=== PATIENT | male | born 1930 | race Caucasian/White ===

== ENCOUNTER 2016-12-18 10:52 | Emergency (ER) | payer OTHER ==
[~2016-12-18] VITALS: Ht 172.7 cm; Wt 74.8 kg
--- NOTE | ~2016-12-18 | EKG ---
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 : 1930 Requested By: Sanjuana Moise Order Number: [id number] MD: Herbert Gomez Measurements Intervals [place] Rate: 69 P: 75 IN: 169 QRS: 43 QRSD: 83 T: QT: 382 QTc: 410 Interpretive Statements Sinus rhythm Nonspecific T abnrm, anterolateral leads Compared to ECG 11/06/2016 19:41:27 No significant changes Electronically Signed On 12-20-2016 14:50:02 CDT by Herbert Gomez [email or web address] <ELECTRONICALLY SIGNED> By: Herbert Gomez MD, [facility] 12/20/16 1450 1135 1135 Herbert Gomez MD, FACC /EPI
[~2016-12-18 10:52] MED LIST: ACCUNEB SO1.25 MG/1 INH; ACETAMINOPHEN325 M1 PO; ALBUTEROL2.5 MG/31 INH; AMBIEN 5 MG TABL5 M1 PO; ASPIR 8181 MG PO; ASPIRIN EC81 M1 PO; AVODART0.5 MG PO; BREO ELLIPTA 21 EACH IH; CADUET 5 MG-401 EACH PO; CLOPIDOGREL75 MG PO; FISH OIL 1,0001 EAC5 PO; FLONASE 0.05%50 MCG NASAL; HYDROCHLOROTHIA25 M1 PO; LEVAQUIN 500 M500 M2 PO; METOPROLOL SUCC25 M1 PO; MIRALAX255 GM PO; PRILOSEC 20 MG20 MG PO; PROAIR HFA8.5 GM INH; PROSCAR 5MG TABL5 MG PO; SPIRIVA INH; SPIRIVA18 MCG INH; TOPROL XL25 MG PO; VENTOLIN HFA 1818 GM INH
[2016-12-18 11:39] LABS: BASOPHILS 0.6 % (0.0-2.0); EOSINOPHILS 2.1 % (0.0-3.0); HEMATOCRIT 39.2 % (42.0-52.0); HEMOGLOBIN 13.6 gm/dL (14.0-18.0); LYMPHOCYTES 11.7 % (24.0-44.0); MCH 32.2 pg (26.0-34.0); MCHC 34.8 g/dL (28.0-37.0); MCV 92.6 fL (80.0-100.0); MONOCYTES 7.6 % (1.0-8.0); PLATELET COUNT 193 thou/uL (150-400); RBC 4.24 mil/uL (4.50-6.00); RDW 12.7 % (10.5-14.5); WBC 11.5 thou/uL (4.0-11.0)
[2016-12-18 11:41] LABS: MANUAL DIFF NO
[2016-12-18 11:50] LABS: PROTIME 10.8 Seconds (9.3-11.4)
[2016-12-18 11:51] LABS: ANION GAP 9 mmol/L (7-16); BUN 20 mg/dL (7-18); CALCIUM 8.6 mg/dL (8.5-10.1); CHLORIDE 103 mmol/L (98-107); CO2 27 mmol/L (21-32); CREATININE 1.1 mg/dL (0.7-1.3); GLUCOSE 92 mg/dL (74-106); POTASSIUM 3.7 mmol/L (3.5-5.1); SODIUM 139 mmol/L (136-145)
[2016-12-18 12:02] LABS: ALBUMIN 3.6 g/dL (3.4-5.0); ALKALINE PHOSPHATASE 117 U/L (46-116); NT-PRO BRAIN NAT PEPTIDE 336 pg/mL (<300); SGOT 14 U/L (15-37); SGPT 20 U/L (30-65); TOTAL PROTEIN 6.8 g/dL (6.4-8.2); TROPONIN-I < 0.04 ng/mL (<0.04-0.07)
[2016-12-18] MEDS ORDERED: PREDNISONE 20 M20 MG PO (12:57)
[2016-12-18] MEDS ORDERED: TESSALON PERLE100 MG PO (12:57)
== END 2016-12-18 13:39 | disposition home or self-care (01) ==
LOC: ER 10:52
PROVIDERS: Nurse Practitioner Family
DX: J44.9 Chronic obstructive pulmonary disease, unspecified (principal); I10 Essential (primary) hypertension; K21.9 Gastro-esophageal reflux disease without esophagitis; Z95.5 Presence of coronary angioplasty implant and graft; F17.210 Nicotine dependence, cigarettes, uncomplicated

== ENCOUNTER → 2018-12-02 | Outpatient (CLI) | payer OTHER ==
[~2018-12-02] VITALS: Ht 172.7 cm; Wt 72.6 kg
[~2018-12-02] MED LIST changes: +PREDNISONE 20 M20 MG PO; +TESSALON PERLE100 MG PO
[2018-12-02 09:04] VITALS: BP 169/71
== END | disposition home or self-care (01) ==
LOC: SPEC 08:13
DX: I70.213 Atherosclerosis of native arteries of extremities with intermittent claudication, bilateral legs (principal); I70.1 Atherosclerosis of renal artery; I10 Essential (primary) hypertension; J44.9 Chronic obstructive pulmonary disease, unspecified; K21.9 Gastro-esophageal reflux disease without esophagitis; E78.5 Hyperlipidemia, unspecified; I25.2 Old myocardial infarction; F17.210 Nicotine dependence, cigarettes, uncomplicated; Z98.890 Other specified postprocedural states; Z82.49 Family history of ischemic heart disease and other diseases of the circulatory system; Z79.899 Other long term (current) drug therapy; Z95.5 Presence of coronary angioplasty implant and graft

== ENCOUNTER → 2019-04-18 | Outpatient (CLI) | payer OTHER ==
[~2019-04-18] VITALS: Ht 172.7 cm; Wt 72.6 kg
[~2019-04-18] MED LIST changes: +AMLODIPINE-ATO1 EAC2 PO; +ANORO ELLIPTA1 EACH INH; +IPRAT-ALBUT 0.5-3 ML INH
--- NOTE | ~2019-04-18 | HPC ---
[facility] [place] [address] PAIN MANAGEMENT CONSULTATION Name: FAUSTINA FRANCOIS Room #: REG [facility].#: [id number] Admission: 04/18/19 Attend Phys: Austin Mariscal MD Discharge: Date of : 30 Report #: [id number] THIS REPORT FOR: //name// CC: Usman Mcdermott MD FAM physician/PCP Physician staff Austin Mariscal DATE OF SERVICE: 04/18/2019 CHIEF COMPLAINT: Low back pain radiating down the posterolateral aspect of both legs. HISTORY OF PRESENT ILLNESS: The patient is a pleasant 88-year-old who is here today at the request of Dr. Mcdermott for evaluation of lumbar radiculopathy. He has long history of smoking. At 88 years of age, he looks great. He moves easily. He is a little bit forgetful, but this is only mild. We had a nice conversation throughout his visit. He has a history of coronary artery disease and has undergone stenting procedures. Dr. Mcdermott has evaluated him for vascular claudication. His symptoms are more severe when he is standing and walking. They are eased somewhat when he sits. As a result of his workup and from his diagnostics, it is felt that he is experiencing neurogenic claudication. I do not have an MRI or x-rays of the lumbar spine. Pain follows an L5-S1 distribution. He has had previous surgery, the first in 1974, the second in 1984. Both were performed through a small incision in the back and I suspect laminectomies. There is no hardware. He takes no pain medication at this time. He has some aspirin that he takes in Excedrin. I have cautioned him about the combination of these in addition to his Plavix. He has a history of GI distress at times and gastroesophageal reflux. The combination is dangerous should he develop any symptoms of GI bleed. Tylenol can be used alternatively. He has had no physical therapy. MEDICATIONS: Finasteride 5 mg, aspirin 81 mg, amiodarone 5/40, Plavix 75 mg, metoprolol 25 mg inhaler and nebulizer. ALLERGIES: None listed. PAST MEDICAL HISTORY: Significant for COPD. He uses nocturnal oxygen. He has a history of hypertension and coronary artery disease. He has had stent. PROCEDURES PERFORMED: I believe by Dr. Bobby. He is treated for hypertension. His only other procedures and surgeries include the two back operations [address] [address] PAIN MANAGEMENT CONSULTATION Name: PRISCILAFAUSTINA BAINS Room #: REG [facility] Kenji#: [id number] Admission: 04/18/19 Attend Phys: Austin Mariscal MD Discharge: Date of : 30 Report #: [id number] described above. SOCIAL HISTORY: He is . His also smokes and has COPD. He smokes 1/2 pack a day now and has smoked for over 60 years. He does not drink alcohol. 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 REVIEW OF SYSTEMS: Completed by the patient is positive for heart trouble, constipation, nocturia, mild incontinence. Otherwise, negative. PHYSICAL EXAMINATION: GENERAL: Pleasant gentleman, conversant. Provides history with some small gaps. VITAL SIGNS: Blood pressure 134/66, heart rate 61, respirations 14, O2 sat 98 on room air. BMI is 24.3. He independently moves from sitting to standing position without difficulty. His gait is mildly antalgic. CHEST: Reveals inspiratory and expiratory wheezing. There is a long expiratory phase. CARDIAC: Rhythm is regular. There is no audible murmur. ABDOMEN: Soft, no organomegaly. MUSCULOSKELETAL: Good range of motion of the upper extremities. Examination of the spine reveals a small scar at L4-L5 and L5-S1 with localized tenderness, which is mild. Straight leg raising is mildly positive bilaterally. Deep tendon reflexes are 1+ bilaterally at the knees. Sensation is intact. There is no focal weakness. IMPRESSION: Lumbar radiculopathy, L5-S1 distribution. I think it is reasonable to treat him without an MRI at this time, although it would be interesting to see how much stenosis he has. I suspect there is some spinal stenosis and certainly some neuroforaminal stenosis that is the source of some of his pain. I discussed procedure with him and will take him off his Plavix for [address] Bobby's blessing and have him back in the clinic for an epidural injection in 1 week. By: [id number] Austin Mariscal MD /nt
[2019-04-18 08:21] VITALS: BP 134/66
--- NOTE | 2019-04-18 08:37 | NUR ---
Pain Clinic Assessment: 1. History of Osteoarthritis: History of Rheumatoid Arthritis: 2. Height: 5 ft. 8 in. 172.7 cm. Weight: 160.0 lb. oz. 72.576 kg. Patient's BMI: 24.3 3. Vital Signs: BP: 134/66 Pulse: 61 Resp: 14 Temp: 02 Sat: 98 ECG Mon: 4. Pain Intensity: 3 5. Fall Risk: Dizziness: Y Needs help standing or walking: N Fallen in the last 3 months: Y Fall risk comments: 6. Patient on Blood Thinner: Clopidogrel Bisulf(Plavix 7. History of Hypertension: Y 8. Opioid Therapy greater than 6 weeks: N Opiate Contract Signed: 9. Risk Assessment Tool Provided: LOW 10. Functional Assessment Tool: 11. Recreational Drug Use: Never Drug Type: Tobacco Use: Current Every Day Smoker Tobacco Type: Cigarettes Amount or Packs/day: 1/2 PACK How Many Years: 60 Alcohol Use: No Frequency: Quant:
== END ==
LOC: PAIN 06:45
DX: M54.16 Radiculopathy, lumbar region (principal); M54.17 Radiculopathy, lumbosacral region; J44.9 Chronic obstructive pulmonary disease, unspecified

== ENCOUNTER → 2019-04-27 | Outpatient (CLI) | payer OTHER ==
[~2019-04-27] VITALS: Ht 170.2 cm; Wt 73.5 kg
[~2019-04-27] MED LIST changes: +NORCO 5-325 TA1 EAC1 PO
--- NOTE | ~2019-04-27 | HPC ---
[address] [address] PAIN MANAGEMENT CONSULTATION Name: FAUST[facility]COIS [id number] Admission: 04/27/19 Attend Phys: Austin Mariscal MD Discharge: Date of : 30 Report #: [id number] THIS REPORT FOR: //name// CC: CARLOS WATTS MD [facility] physician/PCP Physician staff Austin Mariscal DATE OF SERVICE: 04/27/2019 Followup visit for low back pain with bilateral L5-S1 radiculopathy. The patient is here today complaining of pain in his low back with radiation primarily to the left, bilaterally into the L5-S1 distribution. We are hopeful that an epidural steroid injection will provide relief. He was on Plavix when we saw him on 04/18/2019 just 9 days ago. After evaluation, we scheduled him for an epidural today at 7 days off his medication. He has been off although he did not discuss with Dr. Bobby. We will go ahead and provide the injection today and reinitiate his Plavix this evening. Record from 04/18/2019 was reviewed. There have been no significant changes. I reviewed the procedure with him including potential risks and benefits. Questions were asked and answered. IMPRESSION: Lumbar radiculopathy, bilateral L5-S1 distribution. PROCEDURE: Epidural steroid injection L4-L5 under fluoroscopic guidance. He was taken to fluoroscopic suite, placed prone, skin prepped with ChloraPrep. Skin anesthetized over the L4-L5 interspace. Because of previous laminectomy, I entered the epidural space from the right. A 20-gauge Tuohy epidural needle was advanced into the midline using loss of resistance. There was no blood nor CSF aspirated. A 1 mL of Omnipaque was injected and excellent spread of dye observed into the epidural space. I then injected a total of 0.3 mL of 0.5% lidocaine mixed with 10 mg of dexamethasone. Needle was removed. There were no complications. He was taken to recovery room and observed for 45 minutes before discharge. Followup visit planned in 1-2 months. By: [id number] Austin Mariscal MD /nt
[2019-04-27 10:07] VITALS: BP 134/70
--- NOTE | 2019-04-27 10:14 | NUR ---
Pain Clinic Assessment: 1. History of Osteoarthritis: Not Applicable History of Rheumatoid Arthritis: Not Applicable 2. Height: 5 ft. 7 in. 170.2 cm. Weight: 162.0 lb. oz. 73.483 kg. Patient's BMI: 25.4 3. Vital Signs: BP: 134/70 Pulse: 63 Resp: 16 Temp: 02 Sat: 99 ECG Mon: 4. Pain Intensity: 3 5. Fall Risk: Dizziness: Y Needs help standing or walking: N Fallen in the last 3 months: N Fall risk comments: 6. Patient on Blood Thinner: Clopidogrel Bisulf(Plavix 7. History of Hypertension: Y 8. Opioid Therapy greater than 6 weeks: N Opiate Contract Signed: 9. Risk Assessment Tool Provided: LOW 10. Functional Assessment Tool: 11. Recreational Drug Use: Never Drug Type: Tobacco Use: Current Every Day Smoker Tobacco Type: Cigarettes Amount or Packs/day: 1/2 pack pd How Many Years: 73 Alcohol Use: No Frequency: Quant:
== END | disposition home or self-care (01) ==
LOC: PAIN 08:23
DX: M54.16 Radiculopathy, lumbar region (principal); G89.29 Other chronic pain; J44.9 Chronic obstructive pulmonary disease, unspecified; F17.210 Nicotine dependence, cigarettes, uncomplicated; Z79.899 Other long term (current) drug therapy; Z98.890 Other specified postprocedural states

== ENCOUNTER 2019-05-02 12:13 | Emergency (ER) | payer OTHER ==
[~2019-05-02] VITALS: Ht 172.7 cm; Wt 72.6 kg
[~2019-05-02 12:13] MED LIST changes: -NORCO 5-325 TA1 EAC1 PO
[2019-05-02] MEDS ORDERED: NORCO 5-325 TA1 EAC1 PO (14:27)
[2019-05-02 14:48] VITALS: BP 138/82
== END 2019-05-02 14:49 | disposition home or self-care (01) ==
LOC: ER 12:13
DX: M54.41 Lumbago with sciatica, right side (principal); F17.210 Nicotine dependence, cigarettes, uncomplicated; Z98.890 Other specified postprocedural states

== ENCOUNTER → 2019-05-22 | Outpatient (CLI) | payer OTHER ==
[~2019-05-22] VITALS: Ht 170.2 cm; Wt 73.8 kg
[~2019-05-22] MED LIST changes: +NORCO 5-325 TA1 EAC1 PO
[2019-05-22 09:25] VITALS: BP 149/73
--- NOTE | 2019-05-22 09:53 | NUR ---
Pain Clinic Assessment: 1. History of Osteoarthritis: Not Applicable History of Rheumatoid Arthritis: Not Applicable 2. Height: 5 ft. 7 in. 170.2 cm. Weight: 162.6 lb. oz. 73.755 kg. Patient's BMI: 25.5 3. Vital Signs: BP: 149/73 Pulse: 63 Resp: 18 Temp: 02 Sat: 100 ECG Mon: 4. Pain Intensity: 0 5. Fall Risk: Dizziness: N Needs help standing or walking: N Fallen in the last 3 months: N Fall risk comments: 6. Patient on Blood Thinner: Clopidogrel Bisulf(Plavix 7. History of Hypertension: Y 8. Opioid Therapy greater than 6 weeks: N Opiate Contract Signed: 9. Risk Assessment Tool Provided: LOW 10. Functional Assessment Tool: 11. Recreational Drug Use: Never Drug Type: Tobacco Use: Current Every Day Smoker Tobacco Type: Amount or Packs/day: How Many Years: Alcohol Use: No Frequency: Quant:
--- NOTE | 2019-06-08 16:52 | HPC ---
[facility] [place] [address] PAIN MANAGEMENT CONSULTATION Name: FAUSTINA FRANCOIS Room #: REG [facility].#: [id number] Admission: 05/22/19 Attend Phys: Austin Mariscal MD Discharge: Date of : 30 Report #: [id number] THIS REPORT FOR: //name// CC: Usman Mcdermott MD FAM unknown Austin Mariscal DATE OF SERVICE: 05/22/2019 The patient returns to pain clinic today. He had initially scheduled for repeat epidural injection and he was last treated on 04/27/2019. Although he had pain last week, the pain over the course of the weekend has gradually dissipated and his pain score is 0. PHYSICAL EXAMINATION: VITAL SIGNS: He is 5 feet 7 inches, BMI 25.5. His blood pressure 149/73, heart rate 63, respirations 18. MUSCULOSKELETAL: He moves gently and independently from a sitting to standing position and walks without difficulty. He has negative straight leg raising. Deep tendon reflexes are diminished bilaterally at the knees and ankles. IMPRESSION: Lumbar radiculopathy, which is completely resolved. He does not need another epidural injection. I have recommended that he return to our clinic only as needed. No injection is performed today. <ELECTRONICALLY SIGNED> By: Austin Mariscal MD 06/08/19 1652 [id number] [id number] Austin Mariscal MD /nt
== END ==
LOC: PAIN 06:49
DX: M54.16 Radiculopathy, lumbar region (principal)

== ENCOUNTER → 2019-10-17 | Outpatient (CLI) | payer OTHER | LOC: SJCVCIMAG 08:51 | DX: I73.9 Peripheral vascular disease, unspecified (principal); I25.10 Atherosclerotic heart disease of native coronary artery without angina pectoris; I10 Essential (primary) hypertension; E78.00 Pure hypercholesterolemia, unspecified; J44.9 Chronic obstructive pulmonary disease, unspecified; F17.210 Nicotine dependence, cigarettes, uncomplicated; Z79.899 Other long term (current) drug therapy; Z95.820 Peripheral vascular angioplasty status with implants and grafts; Z98.890 Other specified postprocedural states ==

== ENCOUNTER → 2020-02-19 | Outpatient (CLI) | payer OTHER | LOC: SJCVC 14:26 | PROVIDERS: ATTEND Internal Medicine Cardiovascular Disease | DX: R94.31 Abnormal electrocardiogram [ECG] [EKG] (principal); I25.10 Atherosclerotic heart disease of native coronary artery without angina pectoris; I73.9 Peripheral vascular disease, unspecified; I10 Essential (primary) hypertension; E78.00 Pure hypercholesterolemia, unspecified ==

== ENCOUNTER → 2020-02-22 | Outpatient (CLI) | payer OTHER ==
[~2020-02-22] VITALS: Ht 165.1 cm; Wt 68.7 kg
--- NOTE | ~2020-02-22 | HPC ---
[facility] [place] [address] PAIN MANAGEMENT CONSULTATION Name: FAUSTINA FRANCOIS [id number] Admission: 02/22/20 Attend Phys: Austin Mariscal MD Discharge: Date of : 30 Report #: [id number] THIS REPORT FOR: cc: JEROMY - No family physician/PCP JEROMY - No family physician/PCP Austin Mariscal MD ~ CC: Usman Mcdermott MD FAM physician/PCP Physician staff Austin Mariscal DATE OF SERVICE: 02/22/2020 I do not have his primary care physician on file. The patient presents back to the pain clinic today with low back pain. He has some radiation into his legs with standing and walking. This has been treated as vascular claudication by Dr. Mcdermott. He has been placed on Plavix. He is able to ambulate, but has some pain that develops in his legs. The majority of his pain is in his low back. Pain is worse with back extension and prolonged standing or walking. He had an epidural injection provided relief for about 1 month in 2019. He would like to repeat an injection today. We discussed his pain generator at length. X-rays show that he has a slight scoliosis and degenerative disk disease consistent with age. PQRS: Positive for spondylosis. BMI is 25.2. Blood pressure 158/79, heart rate is 64, respirations 16, O2 sat 100, pain intensity is 7/10, mostly with activity, starting in the low back with radiation into the legs bilaterally L5-S1 distribution. He has not fallen, in fact he has been mowing lawns. He is on Plavix because of Dr. Mcdermott's procedure. He has a history of hypertension and is under treatment. Does not take opioids. He has an opioid risk tool on his chart scores 0. He has been smoking for 70 years and probably will smoke until his final day. He smokes about half pack of menthol cigarettes a day! Denies any COPD or other breathing difficulties. No recommendation to quit was given to this 89-year-old who enjoys his tobacco. Denies use of alcohol. PHYSICAL EXAMINATION: GENERAL: He is a bright gentleman. He is wearing a mask, pleasant, alert and oriented. No signs of anxiety, depression or senility. VITAL SIGNS: His blood pressure is 158/79, heart rate is 64, respirations 16. MUSCULOSKELETAL: He moves independently from sitting to standing position. His gait is stable. He has pain with forward flexion and extension of the spine, [facility] [address] [place] [address] PAIN MANAGEMENT CONSULTATION Name: FAUSTINA FRANCOIS Room #: REG CL Roddy#: [id number] Admission: 02/22/20 Attend Phys: Austin Mariscal MD Discharge: Date of : 30 Report #: [id number] worse with extension. Straight leg raising is negative today in the sitting and supine position. It was positive on the right last year. Sensation is intact. He has no focal weakness. CHEST: Clear. CARDIAC: Rhythm is regular. IMPRESSION: Low back pain with spondylosis. Some mild radiculopathy, but the majority of his pain appears to be mechanical in the low back. RECOMMENDATIONS: We will try L5-S1, L4-L5 and L3-L4 facet injections. This is where the majority of his pain is located. I will perform the injections bilaterally and we will watch for both a diagnostic and therapeutic response using triamcinolone. PROCEDURE: After informed consent, he was taken to the fluoroscopic suite. We confirmed that he had discontinued his Plavix. The skin was prepped with ChloraPrep and I began on the left. After anesthetizing the skin with 1% lidocaine, I advanced 25-gauge needles in the posterior inferior capsule of the facet joint. After negative aspiration, each joint was gently injected with 1 mL of 0.5% bupivacaine mixed with 10 mg of triamcinolone. He tolerated the procedure well on the left. The C-arm was moved to the right. He was allowed to reposition. We repeated the procedure using an identical technique. There were no complications. He was taken to recovery room where he was observed for a short time without complications and discharged. A followup visit planned at 1 month. Depending on his response and if he needs to come back in 1 month, I may repeat the injection, may consider radiofrequency ablation or may also consider transition to an epidural injection depending on symptoms. Certainly, he has some nerve root irritation as well given the looks of his spine. He has responded although briefly to a single epidural injection in 2019. This was all explained to the patient in a lengthy consultation. By: [id number] Austin Mariscal MD /nt
[2020-02-22 09:50] VITALS: BP 158/79
--- NOTE | 2020-02-22 09:51 | NUR ---
Pain Clinic Assessment: 1. History of Osteoarthritis: Not Applicable History of Rheumatoid Arthritis: Not Applicable 2. Height: 5 ft. 5 in. 165.1 cm. Weight: 151.4 lb. oz. 68.675 kg. Patient's BMI: 25.2 3. Vital Signs: BP: 158/79 Pulse: 64 Resp: 16 Temp: 02 Sat: 100 ECG Mon: 4. Pain Intensity: 7 W/ACTIVITY 5. Fall Risk: Dizziness: N Needs help standing or walking: N Fallen in the last 3 months: N Fall risk comments: 6. Patient on Blood Thinner: Clopidogrel Bisulf(Plavix 7. History of Hypertension: Y 8. Opioid Therapy greater than 6 weeks: N Opiate Contract Signed: 9. Risk Assessment Tool Provided: LOW 10. Functional Assessment Tool: 11. Recreational Drug Use: Never Drug Type: Tobacco Use: Current Every Day Smoker Tobacco Type: Cigarettes Amount or Packs/day: 1/2 How Many Years: 70 Alcohol Use: No Frequency: Quant:
== END | disposition home or self-care (01) ==
LOC: PAIN 08:54
PROVIDERS: ATTEND Anesthesiology Pain Medicine
DX: M54.5 Low back pain (principal); M47.816 Spondylosis without myelopathy or radiculopathy, lumbar region; G89.29 Other chronic pain; I10 Essential (primary) hypertension; F17.210 Nicotine dependence, cigarettes, uncomplicated; Z98.890 Other specified postprocedural states; Z79.899 Other long term (current) drug therapy

== ENCOUNTER → 2020-04-25 | Outpatient (CLI) | payer OTHER | LOC: SJCVCIMAG 09:02 | PROVIDERS: ATTEND Nuclear Medicine Nuclear Cardiology | DX: I65.21 Occlusion and stenosis of right carotid artery (principal); I73.9 Peripheral vascular disease, unspecified; I25.10 Atherosclerotic heart disease of native coronary artery without angina pectoris; I10 Essential (primary) hypertension; E78.00 Pure hypercholesterolemia, unspecified; J44.9 Chronic obstructive pulmonary disease, unspecified; Z98.890 Other specified postprocedural states ==